=== PATIENT | female | born 1990 | race Caucasian/White ===

== ENCOUNTER → 2020-07-21 | Outpatient (CLI) | payer BC | LOC: CARDREHAB 09:44 | DX: G47.33 Obstructive sleep apnea (adult) (pediatric) (principal) | CPT/HCPCS: G0399 ==

== ENCOUNTER → 2021-05-04 | Outpatient (CLI) | payer BC | LOC: LAB 14:38 | DX: Z20.822 Contact with and (suspected) exposure to COVID-19 (principal) ==